=== PATIENT | male | born 1970 | race Two or more races ===

== ENCOUNTER 2017-05-12 16:01 | Emergency (ER) | payer MEDICARE, MEDICAID ==
[~2017-05-12] VITALS: Ht 177.8 cm; Wt 99.8 kg
[2017-05-12] MEDS ORDERED: NITROGLYCERIN 0.4 MG SUBL SL ONE (16:20)
[2017-05-12] MEDS ORDERED: ARIP30TA10 PO (16:29)
[2017-05-12] MEDS ORDERED: LITH600C6 PO (16:29)
[2017-05-12] MEDS ORDERED: LOSA25TA50 PO (16:29)
[2017-05-12] MEDS ORDERED: FLUT1DIS29 IH (16:29)
[2017-05-12] MEDS ORDERED: ATOR20TA22 PO (16:29)
[2017-05-12] MEDS ORDERED: ALB18R INH (16:29)
[2017-05-12] MEDS ORDERED: HYDR12.556 PO (16:29)
[2017-05-12] MEDS ORDERED: HYDR-4228 PO (16:29)
[2017-05-12] MEDS ORDERED: MORPHINE 4 MG/ML SDV IVP ONE (16:30)
[2017-05-12] MEDS ORDERED: ONDANSETRON 4 MG/2 ML VIAL IVP ONE (16:30)
--- NOTE | 2017-05-12 16:35 | EKG ---
FACILITY: [facility] [place] PATIENT NAME: MIKE HURD : [id number] MR: [id number] V: [id number] EXAM DATE: ORDERING PHYSICIAN: LATOSHA ARECHIGA TECHNOLOGIST: Mumtaz Johnson Reason : Blood Pressure : / mmHG Vent. Rate : 125 BPM Atrial Rate : 125 BPM P-R Int : 140 ms QRS Dur : 080 ms QT Int : 322 ms P-R-T Axes : 044 046 -14 degrees QTc Int : [address] elevation concerning for septal MO T wave abnormality, consider inferior ischemia Abnormal ECG When compared with ECG of 12-MAY-2017 16:11, No significant change was found Confirmed by VIRI CALLEJAS ([id number]) on 05/13/2017 6:14:47 AM Referred By: Confirmed By:VIRI CALLEJAS
--- NOTE | 2017-05-12 16:35 | EKG ---
FACILITY: [facility] PATIENT NAME: MIKE HURD : [id number] MR: [id number] V: [id number] EXAM DATE: ORDERING PHYSICIAN: LATOSHA ARECHIGA TECHNOLOGIST: Mumtaz Johnson Reason : Blood Pressure : / mmHG Vent. Rate : 116 BPM Atrial Rate : 116 BPM P-R Int : 142 ms QRS Dur : 086 ms QT Int : 332 ms P-R-T Axes : 052 052 -04 degrees QTc Int : 461 ms Sinus tachycardia Septal infarct , age undetermined ST elevation concerning for septal ID T wave abnormality, consider inferior ischemia Abnormal ECG No previous ECGs available Confirmed by VIRI CALLEJAS ([id number]) on 05/13/2017 6:14:06 AM Referred By: Confirmed By:VIRI CALLEJAS
[2017-05-12] MEDS ORDERED: CLOPIDOGREL BISULFATE 75MG TAB PO ONE ×2 (16:40→16:50)
[2017-05-12] MEDS ORDERED: HEPARIN (PORC) 5000 UN/ML VIAL IVP ONE (16:50)
[2017-05-12] MEDS ORDERED: HEPARIN* SOD/D5W 25000 U/500ML 500 ML IV ONE (16:50)
[2017-05-12 16:51] LABS: PLATELET COUNT, AUTOMATED 264 K/uL (150-450)
[2017-05-12] MEDS ORDERED: NITROGLYCERN* 50 MG/D5W 250 ML 250 ML IV ONE (16:55)
[2017-05-12] MEDS ORDERED: TENECTEPLASE 50 MG KIT IVP ONE (17:05)
--- NOTE | 2017-05-12 17:23 | ER Report ---
History and Physical Time Seen By MD: 17:00 Hx. of Stated Complaint: chest pain that started about 15 minutes ago HPI/ROS CHIEF COMPLAINT: Chest pain HISTORY OF PRESENT ILLNESS: Patient is a 46-year-old male who presents the ED with complaint of 15 minutes of severe chest pain radiating to both arms and his right jaw. He states that he was just watching TV when he first noticed this. He states that he does have a history of hypertension, hyperlipidemia, smoking although he did quit 7 years ago. He states that he usually is quite sedentary due to being on disability for his back and psychiatric issues. Patient states that he does have a positive family history of his father having an ND and needing a triple bypass at the age of 47. Patient states that he did have an episode of chest pain that is radiating into his right arm last week but this did resolve and he thought since it was not his left arm that it was nothing to worry about. Patient states that he is feeling a little short of breath and nauseated with this. He also does feel a little anxious. REVIEW OF SYSTEMS: Constitutional: No fever, no chills. Eyes: No discharge. ENT: No sore throat. Cardiovascular: History of present illness. No palpitations. Respiratory: See history of present illness. No cough. Gastrointestinal: No abdominal pain, no vomiting. Genitourinary: No hematuria. Musculoskeletal: No back pain. Skin: No rashes. Neurological: No headache. Allergies: Coded Allergies: No Known Drug Allergies (Unverified , 05/12/17) Home Meds Reported Medications Albuterol Sulfate (VENTOLIN HFA) 18 Gm Inh, 1-2 PUFF INH 3-4XD, INH 05/12/17 Fluticasone/Salmeterol (ADVAIR 500-50 DISKUS) 1 Each Disk.w.dev, 1 EACH IH BID 05/12/17 Aripiprazole (ABILIFY) 30 Mg Tablet, 30 MG PO QDAY, #10 TAB 05/12/17 Hydroxyzine Hcl (HYDROXYZINE HCL) 50 Mg Tablet, 50 MG PO PRN 05/12/17 Losartan Potassium (LOSARTAN POTASSIUM) 25 Mg Tablet, 25 MG PO QDAY 05/12/17 Hydrochlorothiazide (HYDROCHLOROTHIAZIDE) 12.5 Mg Capsule, 1 TAB PO QDAY, CAPSULE 05/12/17 Atorvastatin Calcium (LIPITOR) 20 Mg Tablet, 1 TAB PO QDAY, TAB 05/12/17 [place] Carbonate (LITHIUM CARBONATE) 600 Mg Capsule, 1200 MG PO BID, CAPSULE 05/12/17 Reviewed Nurses Notes: Yes Old Medical Records Reviewed: Yes Hx Substance Use Disorder: No Hx Alcohol Use: Yes Constitutional Vital Sign - Last 24 Hours 05/12/17 05/12/17 05/12/17 05/12/17 16:01 16:05 16:06 16:11 Pulse ??? 120 119 121 Resp 28 28 17 B/P (MAP) 141/110 (120) Pulse Ox 97 98 100 O2 Delivery Room Air 05/12/17 05/12/17 05/12/17 05/12/17 16:15 16:16 16:21 16:24 Pulse 115 114 Resp 20 12 B/P (MAP) 150/104 (119) 142/110 (121) Pulse Ox 99 97 05/12/17 05/12/17 05/12/17 05/12/17 16:26 16:28 16:30 16:31 Pulse 119 124 Resp 19 19 B/P (MAP) 132/84 (100) 126/89 (101) Pulse Ox 95 95 05/12/17 05/12/17 05/12/17 05/12/17 16:33 16:36 16:40 16:41 Pulse 126 123 Resp 23 20 B/P (MAP) 121/77 (92) 107/76 (86) Pulse Ox 94 94 05/12/17 05/12/17 05/12/17 05/12/17 16:46 16:50 16:51 16:56 Pulse 118 127 120 Resp 18 24 19 B/P (MAP) 112/92 (99) Pulse Ox 94 94 94 05/12/17 05/12/17 05/12/17 05/12/17 17:01 17:03 17:06 17:10 Pulse 123 120 Resp 16 22 B/P (MAP) 135/86 (102) 126/92 (103) Pulse Ox 95 95 05/12/17 05/12/17 17:11 17:16 Pulse 119 116 Resp 16 24 Pulse Ox 94 96 Physical Exam General Appearance: The patient is alert, has no immediate need for airway protection and no signs of toxicity. Patient appears to be in some mild distress. Eyes: Pupils equal and round no pallor or injection. ENT, Mouth: Mucous membranes are moist. Respiratory: There are no retractions, lungs are clear to auscultation. Cardiovascular: Regular rate and rhythm. No murmurs, rubs, gallops appreciated. Gastrointestinal: Abdomen is soft and non tender, no masses, bowel sounds normal. Skin: Warm and dry, no rashes. Musculoskeletal: Neck is supple non tender. Extremities are nontender, nonswollen and have full range of motion. No edema to bilateral lower extremity is appreciated. DIFFERENTIAL DIAGNOSIS: After history and physical exam differential diagnosis was considered for chest pain including but not limited to myocardial ischemia, pericarditis pulmonary embolus, chest wall pain, pleural inflammation and pulmonary infectious causes. Medical Decision Making Data Points Result Diagram: 05/12/17 1611 05/12/17 1611 Laboratory Hematology Test 05/12/17 16:11 Red Blood Count 5.68 M/uL (4.00-5.60) Mean Corpuscular Volume 84.8 fL (80.0-96.0) Mean Corpuscular Hemoglobin 28.0 pg (26.0-33.0) Mean Corpuscular Hemoglobin Concent 33.1 g/dL (32.0-36.0) Red Cell Distribution Width 19.5 % (11.5-14.5) Mean Platelet Volume 8.0 fL (7.2-11.1) Neutrophils (%) (Auto) 50.0 % (39.4-72.5) Lymphocytes (%) (Auto) 39.9 % (17.6-49.6) Monocytes (%) (Auto) 7.0 % (4.1-12.4) Eosinophils (%) (Auto) 2.6 % (0.4-6.7) Basophils (%) (Auto) 0.5 % (0.3-1.4) Nucleated RBC Relative Count (auto) 0.0 /100WBC Neutrophils # (Auto) 5.0 K/uL (2.0-7.4) Lymphocytes # (Auto) 4.0 K/uL (1.3-3.6) Monocytes # (Auto) 0.7 K/uL (0.3-1.0) Eosinophils # (Auto) 0.3 K/uL (0.0-0.5) Basophils # (Auto) 0.0 K/uL (0.0-0.1) Nucleated RBC Absolute Count (auto) 0.00 K/uL D-Dimer Quantitative (PE/DVT) < 0.27 ug/ml (0-0.50) Sodium Level 141 mmol/L (137-145) Potassium Level 3.3 mmol/L (3.5-5.0) Chloride Level 102 mmol/L (98-107) Carbon Dioxide Level 24 mmol/L (22-30) Blood Urea Nitrogen 7 mg/dl (9-21) Creatinine 0.80 mg/dl (0.66-1.25) Glomerular Filtration Rate Calc > 60.0 Random Glucose 125 mg/dl (75-110) Calcium Level 9.5 mg/dl (8.4-10.2) Total Bilirubin 0.4 mg/dl (0.2-1.3) Aspartate Amino Transf (AST/SGOT) 55 U/L (0-35) Alanine Aminotransferase (ALT/SGPT) 63 U/L (0-56) Alkaline Phosphatase 77 U/L (0-126) Troponin I 0.060 ng/ml Total Protein 8.0 gm/dl (6.3-8.2) Albumin 4.7 g/dl (3.5-5.0) Chemistry Test 05/12/17 16:11 White Blood Count 10.0 k/uL (4.5-11.0) Red Blood Count 5.68 M/uL (4.00-5.60) Hemoglobin 15.9 g/dL (14.0-18.0) Hematocrit 48.2 % (42.0-52.0) Mean Corpuscular Volume 84.8 fL (80.0-96.0) Mean Corpuscular Hemoglobin 28.0 pg (26.0-33.0) Mean Corpuscular Hemoglobin Concent 33.1 g/dL (32.0-36.0) Red Cell Distribution Width 19.5 % (11.5-14.5) Platelet Count 264 K/uL (150-450) Mean Platelet Volume 8.0 fL (7.2-11.1) Neutrophils (%) (Auto) 50.0 % (39.4-72.5) Lymphocytes (%) (Auto) 39.9 % (17.6-49.6) Monocytes (%) (Auto) 7.0 % (4.1-12.4) Eosinophils (%) (Auto) 2.6 % (0.4-6.7) Basophils (%) (Auto) 0.5 % (0.3-1.4) Nucleated RBC Relative Count (auto) 0.0 /100WBC Neutrophils # (Auto) 5.0 K/uL (2.0-7.4) Lymphocytes # (Auto) 4.0 K/uL (1.3-3.6) Monocytes # (Auto) 0.7 K/uL (0.3-1.0) Eosinophils # (Auto) 0.3 K/uL (0.0-0.5) Basophils # (Auto) 0.0 K/uL (0.0-0.1) Nucleated RBC Absolute Count (auto) 0.00 K/uL D-Dimer Quantitative (PE/DVT) < 0.27 ug/ml (0-0.50) Glomerular Filtration Rate Calc > 60.0 Calcium Level 9.5 mg/dl (8.4-10.2) Total Bilirubin 0.4 mg/dl (0.2-1.3) Aspartate Amino Transf (AST/SGOT) 55 U/L (0-35) Alanine Aminotransferase (ALT/SGPT) 63 U/L (0-56) Alkaline Phosphatase 77 U/L (0-126) Troponin I 0.060 ng/ml Total Protein 8.0 gm/dl (6.3-8.2) Albumin 4.7 g/dl (3.5-5.0) Coagulation Test 05/12/17 16:11 D-Dimer Quantitative (PE/DVT) < 0.27 ug/ml EKG/Imaging EKG Interpretation 12 lead EK:11 Rhythm: Sinus tachycardia, rate [address] segments: There appears to be some borderline ST elevation in V1, V2, V3. S/T ratio in V2 is 0.44 12 lead EK:27 Rhythm: Sinus tachycardia, rate [address] segments: Again borderline ST changes are noted in V1, V2, V3. They appear to be slightly worsened in V1 and V2 now. S/T ratio of V1 is 0.375 and S/ T ratio of V2 is 0.5 12 lead EK:50 Rhythm: Sinus tachycardia, rate [address] segments: Significant SCLC elevation noted in V2 and V1 now. Also some ST elevation noted in V3. 12 lead EK:13 - at time of lytics Rhythm: Sinus tachycardia, rate [address] segments: Significant ST elevation in V1, V2, V3. 12 lead EK:28 Rhythm: As tachycardia, rate [address] segments: Significant ST elevation in V1, V2, V3. Essentially unchanged from previous EKG Imaging CXR: No acute cardiopulmonary process identified. waiting for radiology reading. ED Course/Re-evaluation ED Course 16:20 - discussed patient with Dr. Peña, Cardiology and [facility] and discussed concern of possible evolving STEMI. Patient has been given 3 nitroglycerin SL, 4 mg morphine IV, 4 mg Zofran IV, Plavix [address] Peña is also concerned with possible evolving STEMI and was discussed this with the local truck driver. 16:30 - 3rd EKG is now been completed and now seeing signs of obvious ST elevation ND. Discussed this with Dr. Peña he states that he will accept patient and should start patient on lytics. He states to continue the heparin and 300 mg by mouth Plavix as well. Will also place him on nitroglycerin drip. Discussed lytics with patient. He has no risk factors of bleeding. He consents to lytic therapy. Discussed pt with Dr. Lowery who agrees with treatment and plan. Decision to Disposition Date: May 12, 2017 Decision to Disposition Time: 17:43 Depart Departure Latest Vital Signs Vital Signs Date Time Temp Pulse Resp B/P (MAP) Pulse Ox O2 Delivery O2 Flow Rate FiO2 05/12/17 17:16 116 24 96 05/12/17 17:10 126/92 (103) 05/12/17 16:05 Room Air Impression: Primary Impression: ST elevation ND (STEMI) Condition: Improved Disposition: XFER TO ACUTE CARE HOSPITAL MD Consult Note: Dr. Lowery, ED Dr. Peña, Cardiology at [facility] Problem Qualifiers Primary Impression: ST elevation ND (STEMI) Involved coronary artery: unspecified coronary artery Qualified Codes: I21.3 - ST elevation (STEMI) myocardial infarction of unspecified site LATOSHA ARECHIGA PA-C May 12, 2017 17:23
[2017-05-12 17:39] VITALS: BP 131/105
--- NOTE | 2017-05-12 17:49 | RADIOLOGY IMAGING REPORT ---
FACILITY: [facility] PATIENT NAME: Rich Chino : 1970 MR: [id number] V: [id number] EXAM DATE: ORDERING PHYSICIAN: LATOSHA ARECHIGA TECHNOLOGIST: Location: [facility] Patient: Rich Chino : 1970 Visit/Account:[id number] Date of Sevice: 05/12/2017 CHEST SINGLE AP Indication: Chest pain.. Comparison: None available Findings: Cardiomediastinal silhouette and pulmonary vessels within normal limits. There is no focal infiltrate or lobar consolidation. No pneumothorax or pleural effusion. No nodule. Upper abdomen is unremarkable. No acute bony abnormality. IMPRESSION: 1. No acute cardiopulmonary process. Report Dictated By: Chang Garcia at 05/12/2017 5:43 PM Report E-Signed By: Chang Garcia at 05/12/2017 5:44 PM WSN:[id number]
--- NOTE | 2017-05-12 20:24 | EKG ---
FACILITY: [facility] [place] PATIENT NAME: MIKE HURD : [id number] MR: [id number] V: [id number] EXAM DATE: ORDERING PHYSICIAN: LATOSHA ARECHIGA TECHNOLOGIST: Test Reason : Blood Pressure : / mmHG Vent. Rate : 112 BPM Atrial Rate : 112 BPM P-R Int : 138 ms QRS Dur : 086 ms QT Int : 336 ms P-R-T Axes : 023 038 -43 degrees QTc Int : 458 ms Sinus tachycardia Anteroseptal infarct , possibly acute ACUTE ME Abnormal ECG No previous ECGs available Confirmed by VIRI CALLEJAS ([id number]) on 05/13/2017 6:15:52 AM Referred By: Confirmed By:VIRI CALLEJAS
--- NOTE | 2017-05-12 20:24 | EKG ---
FACILITY: [facility] PATIENT NAME: MIKE HURD : [id number] MR: [id number] V: [id number] EXAM DATE: ORDERING PHYSICIAN: LATOSAH ARECHIGA TECHNOLOGIST: Mumtaz Johnson Reason : Blood Pressure : / mmHG Vent. Rate : 117 BPM Atrial Rate : 117 BPM P-R Int : 140 ms QRS Dur : 084 ms QT Int : 314 ms P-R-T Axes : 035 034 -45 degrees QTc Int : 438 ms Sinus tachycardia Septal infarct , age undetermined ST elevation concerning for septal WA Marked ST abnormality, possible inferior subendocardial injury Abnormal ECG When compared with ECG of 12-MAY-2017 16:27, ST now depressed in Inferior leads Confirmed by VIRI CALLEJAS ([id number]) on 05/13/2017 6:15:36 AM Referred By: Confirmed By:VIRI CALLEJAS
--- NOTE | 2017-05-12 20:24 | EKG ---
FACILITY: [facility] [place] PATIENT NAME: MIKE HURD : [id number] MR: [id number] V: [id number] EXAM DATE: ORDERING PHYSICIAN: LATOSHA ARECHIGA TECHNOLOGIST: Test Reason : Blood Pressure : / mmHG Vent. Rate : 118 BPM Atrial Rate : 118 BPM P-R Int : 136 ms QRS Dur : 088 ms QT Int : 330 ms P-R-T Axes : 023 043 -29 degrees QTc Int : 462 ms Sinus tachycardia Anteroseptal infarct , possibly acute ACUTE OR Abnormal ECG Unchanged from previous Confirmed by VIRI CALLEJAS ([id number]) on 05/13/2017 6:16:21 AM Referred By: Confirmed By:VIRI CALLEJAS
== END 2017-05-12 18:05 | disposition short-term general hospital (02) ==
LOC: ER 16:06
DX: I21.3 ST elevation (STEMI) myocardial infarction of unspecified site (principal)
CPT/HCPCS: 71045; 84484; 85025; 85379; 93005; 96365; 96368; 96375; 99285; A9270; J1644; J2270; J2405; J3101; J3490; 82040; 82247; 82310; 82374; 82435; 82565; 82947; 84075; 84132; 84155; 84295; 84450; 84460; 84520

== ENCOUNTER → 2017-05-12 | Outpatient (CLI) | payer MEDICARE, MEDICAID ==
[~2017-05-12] MED LIST: ALB18R INH; ARIP30TA10 PO; ATOR20TA22 PO; FLUT1DIS29 IH; HYDR-4228 PO; HYDR12.556 PO; LITH600C6 PO; LOSA25TA50 PO
== END ==
LOC: AMB 20:41
PROVIDERS: ATTEND Nurse Practitioner
DX: I21.3 ST elevation (STEMI) myocardial infarction of unspecified site (principal)
CPT/HCPCS: A0425; A0426

== ENCOUNTER → 2017-05-19 | Outpatient (CLI) | payer MEDICARE, MEDICAID | LOC: LAB 10:25 | PROVIDERS: ATTEND Physician Assistant | DX: F31.9 Bipolar disorder, unspecified (principal) | CPT/HCPCS: 80178; 82310; 82374; 82435; 82565; 82947; 84132; 84295; 84520 ==

== ENCOUNTER 2017-05-27 15:00 | Outpatient (RCR) | payer MEDICARE, MEDICAID ==
[2017-05-24 17:06] VITALS: BP 102/70
[2017-05-24 17:08] VITALS: BP 110/74
--- NOTE | 2017-05-24 18:06 | CARDIAC REHAB PLAN OF CARE ---
Physician: Ashish HORNE Patient is being seen: Brody Mae Medical Diagnosis: STEMI, Stent x 2, EF=35% Date of Initial Evaluation: May 24, 2017 SHORT TERM GOALS Short Term Goals Due Date: 06/24/17 Short Term Goals: 46 year old male phase II patient comes to cardiac rehab after an anterior STEMI with 2 stents placed (LAD,RCA), EF at 35%. Patient is 5 '10", 226 pounds with the BMI max weight at 174 pounds. Patient medical history also includes Asthma, COPD, and Laminectomy of Lumbar spine region with some numbness sensation of the left leg. Patient walks with the aid of a cane. Patient also diagnoses as a child with bipolar disorder and several times with depression. Patient is only somewhat interested in cardiac rehab at this time. Patient preformed poorly on initial evaluation exercise and could only tolerate 3.5 minutes on the recumbent bike at 3.3 MET level, SPO2 levels remained mid-90's on room air, and the threat monitoring analyst showed a ST without ectopy and a rate up to 111. Patient discontinued exercise at the 3.5 minute time with symptoms of claudication in the lower left leg. Patient will enter the cardiac rehab protocol with duration and intensity levels at 2.5-3.5 METs over a 10-15 minutes. Patient will also need to make adjustments to a heart healthy diet with proper portions and remain committed to lifestyle changes he has already made with smoking and alcohol cessation. Short Term Goals Met: Short Term Goals Not Met Due To: FARM CONSULTANT GOALS Usp Goal Due Date: 07/24/17 Usp Goals: jail goals for patient are to gradually work up to the minimum AHA standards of 150 minutes each week of a moderate level cardio exercise,along with weight resistance exercise at least twice a week. Patient will also continue to be consistent with heart healthy meals and portion control to allow safe 1-2 pound per week weight loss. Usp Goals Met: Usp Goals Not Met Due To: PATIENT'S GOALS Patient Goals Due Date: 06/24/17 Patient Goals: Patient interest in the cardiac rehab program is low at this time , and he really didn't have a goal in mind. When given the choice of healthy outcomes for diet, exercise, and lifestyle changes, he prioritized losing weight as his number one goal. Patient Goals Met: Patient Goals Not Met Due To: Cardiac Rehabilitation Plan of Care Comment: Cardiac rehab staff will monitor, record, and evaluate vitals, ECG, and exercise results to provide the best plan of care for the patient throughout the 36 visit, phase II program. CR staff will educate and motivate the patient during visits for rehab. OBED
[2017-05-27 16:20] VITALS: BP_SYST 118; BP_SYST 120; BP_DIAS 78; BP_DIAS 80
== END 2017-05-27 18:00 | disposition home or self-care (01) ==
LOC: CARD 15:00
PROVIDERS: ATTEND Internal Medicine Cardiovascular Disease
DX: I25.2 Old myocardial infarction (principal); Z95.5 Presence of coronary angioplasty implant and graft; J44.9 Chronic obstructive pulmonary disease, unspecified; Z98.890 Other specified postprocedural states; R20.2 Paresthesia of skin; F31.9 Bipolar disorder, unspecified; Z87.891 Personal history of nicotine dependence; I10 Essential (primary) hypertension
CPT/HCPCS: 93798

== ENCOUNTER → 2017-06-19 | Outpatient (CLI) | payer MEDICARE, MEDICAID | LOC: LAB 15:09 | PROVIDERS: ATTEND Internal Medicine Cardiovascular Disease | DX: R25.1 Tremor, unspecified (principal); Z79.899 Other long term (current) drug therapy | CPT/HCPCS: 36415; 80178; 82310; 82374; 82435; 82565; 82947; 84132; 84295; 84520 ==

== ENCOUNTER → 2017-06-24 | Outpatient (CLI) | payer MEDICARE, MEDICAID | LOC: LAB 10:20 | PROVIDERS: ATTEND Nurse Practitioner Psychiatric/Mental Health | DX: Z51.81 Encounter for therapeutic drug level monitoring (principal); Z79.899 Other long term (current) drug therapy | CPT/HCPCS: 36415; 80178; 84443 ==

== ENCOUNTER 2017-08-19 16:31 | Emergency (ER) | payer MEDICARE, MEDICAID ==
--- NOTE | 2017-08-19 16:40 | ER Report ---
History and Physical Time Seen By MD: 16:39 Hx. of Stated Complaint: CALLED EMS FOR CHEST PRESSURE. TOOK 4 BABY ASA AND ONE NITRO AT HOME. ARRIVES PAIN FREE. REPORTS THAT HE WAS DIZZY DURING EPISODE (MILAN WILSON DO) HPI/ROS CHIEF COMPLAINT: Chest pain, chest pressure, near syncope HISTORY OF PRESENT ILLNESS: Patient is a 47-year-old male status post PA several months ago Anterior STEMI with 2 stent placement. Patient reports that approximately one hour prior to arrival at approximately 1530 the patient attempted to stand up and felt extremely lightheaded, severe chest pressure midsternal distribution without radiation and pain that shot down both of his arms which is similar but less severe as compared to his prior heart attack. Patient took 4 aspirin and 1 nitroglycerin tab with near complete resolution of pain and pressure. REVIEW OF SYSTEMS: Constitutional: No fever, no chills. Eyes: No discharge. ENT: No sore throat. Cardiovascular: + Chest Pressure, no palpitations, + b/l UE pain Respiratory: No cough, no shortness of breath. Gastrointestinal: No abdominal pain, no vomiting. Genitourinary: No hematuria. Musculoskeletal: No back pain. Skin: No rashes. Neurological: No headache. (MILAN WILSON DO) Allergies: Coded Allergies: No Known Drug Allergies (Unverified , 05/12/17) Home Meds Reported Medications Albuterol Sulfate (VENTOLIN HFA) 18 Gm Inh, 1-2 PUFF INH 3-4XD, INH 05/12/17 Fluticasone/Salmeterol (ADVAIR 500-50 DISKUS) 1 Each Disk.w.dev, 1 EACH IH BID 05/12/17 Aripiprazole (ABILIFY) 30 Mg Tablet, 30 MG PO QDAY, #10 TAB 05/12/17 Hydroxyzine Hcl (HYDROXYZINE HCL) 50 Mg Tablet, 50 MG PO PRN 05/12/17 Losartan Potassium (LOSARTAN POTASSIUM) 25 Mg Tablet, 25 MG PO QDAY 05/12/17 Hydrochlorothiazide (HYDROCHLOROTHIAZIDE) 12.5 Mg Capsule, 1 TAB PO QDAY, CAPSULE 05/12/17 Atorvastatin Calcium (LIPITOR) 20 Mg Tablet, 1 TAB PO QDAY, TAB 05/12/17 [place] Carbonate (LITHIUM CARBONATE) 600 Mg Capsule, 1200 MG PO BID, CAPSULE 05/12/17 Hx Substance Use Disorder: No Hx Alcohol Use: Yes (MILAN WILSON DO) Constitutional Vital Sign - Last 24 Hours 08/19/17 08/19/17 08/19/17 08/19/17 16:32 16:34 16:34 16:46 Temp 98.4 Pulse 93 ??? Resp 20 B/P (MAP) 122/79 (93) 122/79 Pulse Ox 95 91 O2 Delivery Room Air O2 Flow Rate 2.0 08/19/17 08/19/17 08/19/17 08/19/17 16:53 17:00 17:01 17:15 Pulse 86 Resp 22 B/P (MAP) 112/78 (89) 117/73 (88) 111/76 (88) Pulse Ox 90 08/19/17 08/19/17 08/19/17 08/19/17 17:16 17:30 17:31 17:45 Pulse 93 87 Resp 20 20 B/P (MAP) 115/76 (89) 116/71 (86) Pulse Ox 90 92 08/19/17 08/19/17 08/19/17 08/19/17 17:46 18:00 18:01 18:15 Pulse 95 83 Resp 41 19 B/P (MAP) 117/77 (90) 104/78 (87) Pulse Ox 95 91 08/19/17 08/19/17 08/19/17 08/19/17 18:16 18:30 18:45 19:00 Pulse 84 85 85 Resp 9 29 28 B/P (MAP) 96/63 (74) 88/71 (77) 111/74 (86) Pulse Ox 92 88 92 08/19/17 08/19/17 08/19/17 08/19/17 19:15 19:20 19:30 19:35 Pulse 81 82 78 Resp 28 17 25 B/P (MAP) 92/74 (80) 115/90 (98) Pulse Ox 90 90 91 08/19/17 08/19/17 08/19/17 08/19/17 19:50 19:55 20:00 20:05 Pulse ??? 83 74 Resp 14 14 16 B/P (MAP) 120/80 (93) Pulse Ox 90 92 91 08/19/17 08/19/17 20:15 20:20 Pulse 85 Resp 11 B/P (MAP) 129/86 (100) Pulse Ox 92 (SARAH BETH BERGER Amira DO) Physical Exam General Appearance: The patient is alert, has no immediate need for airway protection and no signs of toxicity. Eyes: Pupils equal and round no pallor or injection. ENT, Mouth: Mucous membranes are moist. Respiratory: There are no retractions, lungs are clear to auscultation. Cardiovascular: Regular rate and rhythm. Gastrointestinal: Abdomen is soft and non tender, no masses, bowel sounds normal. Neurological: No focal neurological deficits Skin: Warm and dry, no rashes. Musculoskeletal: Neck is supple non tender. Extremities are nontender, nonswollen and have full range of motion. DIFFERENTIAL DIAGNOSIS: After history and physical exam differential diagnosis was considered for chest pain including but not limited to myocardial ischemia, pericarditis pulmonary embolus, chest wall pain, pleural inflammation and pulmonary infectious causes. (MILAN WILSON DO) Medical Decision Making Data Points Result Diagram: 08/19/17 1624 08/19/17 1624 Laboratory Hematology Test 08/19/17 16:24 08/19/17 19:39 Red Blood Count 6.39 M/uL (4.00-5.60) Mean Corpuscular Volume 81.6 fL (80.0-96.0) Mean Corpuscular Hemoglobin 27.2 pg (26.0-33.0) Mean Corpuscular Hemoglobin Concent 33.4 g/dL (32.0-36.0) Red Cell Distribution Width 13.7 % (11.5-14.5) Mean Platelet Volume 7.2 fL (7.2-11.1) Neutrophils (%) (Auto) 61.0 % (39.4-72.5) Lymphocytes (%) (Auto) 31.8 % (17.6-49.6) Monocytes (%) (Auto) 5.4 % (4.1-12.4) Eosinophils (%) (Auto) 1.3 % (0.4-6.7) Basophils (%) (Auto) 0.5 % (0.3-1.4) Nucleated RBC Relative Count (auto) 0.0 /100WBC Neutrophils # (Auto) 8.0 K/uL (2.0-7.4) Lymphocytes # (Auto) 4.2 K/uL (1.3-3.6) Monocytes # (Auto) 0.7 K/uL (0.3-1.0) Eosinophils # (Auto) 0.2 K/uL (0.0-0.5) Basophils # (Auto) 0.1 K/uL (0.0-0.1) Nucleated RBC Absolute Count (auto) 0.00 K/uL Prothrombin Time 13.0 seconds (12.0-14.4) Prothromb Time International Ratio 0.98 Activated Partial Thromboplast Time 27 seconds (23-35) Sodium Level 142 mmol/L (137-145) Potassium Level 3.8 mmol/L (3.5-5.0) Chloride Level 99 mmol/L (98-107) Carbon Dioxide Level 27 mmol/L (22-30) Blood Urea Nitrogen 18 mg/dl (9-21) Creatinine 1.30 mg/dl (0.66-1.25) Glomerular Filtration Rate Calc 58.9 Random Glucose 120 mg/dl (75-110) Calcium Level 10.8 mg/dl (8.4-10.2) Total Bilirubin 0.9 mg/dl (0.2-1.3) Aspartate Amino Transf (AST/SGOT) 30 U/L (0-35) Alanine Aminotransferase (ALT/SGPT) 55 U/L (0-56) Alkaline Phosphatase 82 U/L (0-126) B-Type Natriuretic Peptide 19 pg/ml (0-100) Total Protein 8.8 gm/dl (6.3-8.2) Albumin 5.1 g/dl (3.5-5.0) Troponin I < 0.012 ng/ml Chemistry Test 08/19/17 16:24 08/19/17 19:39 White Blood Count 13.2 k/uL (4.5-11.0) Red Blood Count 6.39 M/uL (4.00-5.60) Hemoglobin 17.4 g/dL (14.0-18.0) Hematocrit 52.1 % (42.0-52.0) Mean Corpuscular Volume 81.6 fL (80.0-96.0) Mean Corpuscular Hemoglobin 27.2 pg (26.0-33.0) Mean Corpuscular Hemoglobin Concent 33.4 g/dL (32.0-36.0) Red Cell Distribution Width 13.7 % (11.5-14.5) Platelet Count 319 K/uL (150-450) Mean Platelet Volume 7.2 fL (7.2-11.1) Neutrophils (%) (Auto) 61.0 % (39.4-72.5) Lymphocytes (%) (Auto) 31.8 % (17.6-49.6) Monocytes (%) (Auto) 5.4 % (4.1-12.4) Eosinophils (%) (Auto) 1.3 % (0.4-6.7) Basophils (%) (Auto) 0.5 % (0.3-1.4) Nucleated RBC Relative Count (auto) 0.0 /100WBC Neutrophils # (Auto) 8.0 K/uL (2.0-7.4) Lymphocytes # (Auto) 4.2 K/uL (1.3-3.6) Monocytes # (Auto) 0.7 K/uL (0.3-1.0) Eosinophils # (Auto) 0.2 K/uL (0.0-0.5) Basophils # (Auto) 0.1 K/uL (0.0-0.1) Nucleated RBC Absolute Count (auto) 0.00 K/uL Prothrombin Time 13.0 seconds (12.0-14.4) Prothromb Time International Ratio 0.98 Activated Partial Thromboplast Time 27 seconds (23-35) Glomerular Filtration Rate Calc 58.9 Calcium Level 10.8 mg/dl (8.4-10.2) Total Bilirubin 0.9 mg/dl (0.2-1.3) Aspartate Amino Transf (AST/SGOT) 30 U/L (0-35) Alanine Aminotransferase (ALT/SGPT) 55 U/L (0-56) Alkaline Phosphatase 82 U/L (0-126) B-Type Natriuretic Peptide 19 pg/ml (0-100) Total Protein 8.8 gm/dl (6.3-8.2) Albumin 5.1 g/dl (3.5-5.0) Troponin I < 0.012 ng/ml Coagulation Test 08/19/17 16:24 Prothrombin Time 13.0 seconds Prothromb Time International Ratio 0.98 Activated Partial Thromboplast Time 27 seconds (SARAH BETH BERGER DO) ED Course/Re-evaluation ED Course Patient is a 47-year-old male here with complaints of acute onset of chest pressure, bilateral upper extremity pain which was relieved by a single nitroglycerin and aspirin at home. Patient reports that the pain started approximately 1530. Initial troponin I was negative EKG showed no acute ST elevations or ischemic changes. Patient did have a recent STEMI earlier in 2018 to stents placed. She has been pain-free since time of admission the emergency department. Repeat troponin I scheduled for 1929. Plan to repeat EKG if pain returns. Patient was signed out to Dr. Berger pending labs. (MILAN WILSON DO) ED Course Care assumed at shift change with 2nd diagnostic troponin pending at 1930. It returned unremarkable. The results were discussed with the patient. He is advised to follow-up with his technical planner Decision to Disposition Date: August 19, 2017 Decision to Disposition Time: 20:10 (SARAH BETH BERGER DO) Depart Departure Latest Vital Signs Vital Signs Date Time Temp Pulse Resp B/P (MAP) Pulse Ox O2 Delivery O2 Flow Rate FiO2 08/19/17 20:20 129/86 (100) 08/19/17 20:15 85 11 92 08/19/17 16:34 2.0 08/19/17 16:34 98.4 Room Air (SARAH BETH BERGER DO) Impression: Primary Impression: Chest pressure Additional Impression: History of coronary artery disease Condition: Improved Referrals: [facility] (PCP) Patient Instructions: Chest Pain (DC) Additional Instructions: Follow-up with your cardiology at next available appointment Problem Qualifiers MILAN WILSON DO August 19, 2017 16:40 SARAH BETH BERGER DO August 19, 2017 20:11
[2017-08-19 16:47] LABS: PLATELET COUNT, AUTOMATED 319 K/uL (150-450)
--- NOTE | 2017-08-19 16:47 | EKG ---
FACILITY: [facility] - [place] PATIENT NAME: MIKE HURD : [id number] MR: [id number] V: [id number] EXAM DATE: ORDERING PHYSICIAN: MILAN WILSON TECHNOLOGIST: MING Johnson Reason : CHEST PRESSURE Blood Pressure : / mmHG Vent. Rate : 091 BPM Atrial Rate : 091 BPM P-R Int : 154 ms QRS Dur : 088 ms QT Int : 360 ms P-R-T Axes : 030 052 028 degrees QTc Int : 442 ms Normal sinus rhythm Septal infarct , age undetermined Abnormal ECG No previous ECGs available Confirmed by CORY JACOBSEN ([id number]) on 08/20/2017 6:34:36 AM Referred By: Confirmed By:CORY JACOBSEN
[2017-08-19 17:02] LABS: INR 0.98
--- NOTE | 2017-08-19 17:27 | RADIOLOGY IMAGING REPORT ---
FACILITY: [facility] - [place] PATIENT NAME: Rich Chino : 1970 MR: [id number] V: [id number] EXAM DATE: ORDERING PHYSICIAN: MILAN WILSON TECHNOLOGIST: Location: [facility] Patient: Rich Chino : 1970 Visit/Account:[id number] Date of Sevice: 08/19/2017 2 VIEWS CHEST INDICATION: Chest pain for one day. COMPARISON: 05/12/2017. FINDINGS: Cardiomediastinal silhouette and pulmonary vessels within normal limits. There is no focal infiltrate or lobar consolidation. There is no pneumothorax or pleural effusion. No nodule. Upper abdomen is unremarkable. No acute bony abnormality. IMPRESSION: 1. No acute cardiopulmonary process. Report Dictated By: Chang Garcia at 08/19/2017 5:21 PM Report E-Signed By: Chang Garcia at 08/19/2017 5:22 PM WSN:[id number]
[2017-08-19 20:20] VITALS: BP 129/86
== END 2017-08-19 20:20 | disposition home or self-care (01) ==
LOC: ER 16:39 → CANBEDREQ 18:09 → ER 20:20
DX: R07.89 Other chest pain (principal); I25.10 Atherosclerotic heart disease of native coronary artery without angina pectoris; R94.31 Abnormal electrocardiogram [ECG] [EKG]
CPT/HCPCS: 36415; 71046; 82040; 82247; 82310; 82374; 82435; 82565; 82947; 83880; 84075; 84132; 84155; 84295; 84450; 84460; 84484; 84520; 85025; 85610; 85730; 93005; 99284

== ENCOUNTER → 2017-08-19 | Outpatient (CLI) | payer MEDICARE, MEDICAID | LOC: AMB 16:11 | PROVIDERS: ATTEND Nurse Practitioner | DX: R07.9 Chest pain, unspecified (principal); I25.2 Old myocardial infarction | CPT/HCPCS: A0425; A0427 ==

== ENCOUNTER → 2017-09-23 | Outpatient (CLI) | payer MEDICARE, MEDICAID ==
[2017-09-23 10:10] LABS: PLATELET COUNT, AUTOMATED 292 K/uL (150-450)
[2017-09-23 10:53] LABS: LDL CHOLESTEROL 45 mg/dl
== END ==
LOC: LAB 09:42
PROVIDERS: ATTEND Nurse Practitioner Psychiatric/Mental Health
DX: Z51.81 Encounter for therapeutic drug level monitoring (principal); Z79.899 Other long term (current) drug therapy
CPT/HCPCS: 36415; 80178; 82040; 82247; 82310; 82374; 82435; 82465; 82565; 82947; 83036; 83718; 84075; 84132; 84155; 84295; 84439; 84443; 84450; 84460; 84478; 84520; 85025

== ENCOUNTER → 2018-05-14 | Outpatient (CLI) | payer MEDICARE, MEDICAID ==
[~2018-05-14] MED LIST changes: -LOSA25TA50 PO; +LOSA25TA57 PO
== END ==
LOC: LAB 09:44
PROVIDERS: ATTEND Internal Medicine Cardiovascular Disease
DX: I25.10 Atherosclerotic heart disease of native coronary artery without angina pectoris (principal); R06.00 Dyspnea, unspecified
CPT/HCPCS: 36415; 82040; 82247; 82310; 82374; 82435; 82465; 82565; 82947; 83718; 84075; 84132; 84155; 84295; 84443; 84450; 84460; 84478; 84520; 85379

== ENCOUNTER 2018-05-26 14:33 | Outpatient (RCR) | payer MEDICARE, MEDICAID ==
[2018-05-28] MEDS ORDERED: REGADENOSON 0.4 MG/5 ML SYR ONE (12:36)
--- NOTE | 2018-05-28 16:30 | RT STRESS TEST REPORT ---
[place] [facility] [place]IENT NAME: MIKE HURD : [id number] MR: [id number] V: [id number] EXAM DATE: ORDERING PHYSICIAN: FREDI GUEVARA TECHNOLOGIST: Boubacar Acquisition Time: 2018-05-28 14:40:09 Total Exercise Time: 00:01:00 Test Indications: SOB Medications: SEE NUCLEAR MED SHEET Protocol: LEXISCAN Max HR: 103 BPM 59% of Pred: 172 BPM Max BP: 128/078 mmHG Max Work Load: 1.0 METS Stress was performed using Lexiscan Protocol. Patient experienced some chest tightness with the infus ion. This resolved fairly quickly in recovery. No EKG chnages were noted. No dysrhythmias were recorded. Await Myoview images. Confirmed by FRANDY MELENDEZ ([id number]) on 05/28/2018 4:29:49 PM Referred By: Overread By: FRANDY MELENDEZ
--- NOTE | 2018-05-28 16:32 | RADIOLOGY IMAGING REPORT ---
FACILITY: [facility] PATIENT NAME: Rich Chino : 1970 MR: [id number] V: [id number] EXAM DATE: ORDERING PHYSICIAN: DAYANNA PETERSON TECHNOLOGIST: Location: [facility] Patient: Rich Chino : 1970 Visit/Account:[id number] Date of Sevice: 05/26/2018 EXAMINATION: Single isotope SPECT imaging with regadenoson infusion and gated SPECT imaging. DATE OF EXAMINATION: 05/28/2018. DATE OF INTERPRETATION: 05/28/2018. REQUESTING PHYSICIAN: DAYANNA PETERSON. INDICATION: The patient is a 47-year-old male evaluated for chest pain, CAD. PROCEDURE: After informed consent the patient received an intravenous injection of 13.0 mCi of Tc-99 m sestamibi followed at an appropriate time interval by rest imaging. The patient then subsequently received an intravenous infusion of 0.4 mg of regadenoson per protocol without complication. Resting heart rate was 80 bpm with a peak heart rate of 103 bpm. Blood pressure at rest was 128 / 78 and fo llowing infusion was [ ] / . Baseline EKG demonstrates sinus rhythm. There were no significant EKG changes of ischemia following infusion. Symptoms were nonspecific. The patient then received an int ravenous injection of 24.2 mCi of Tc-99m sestamibi followed by stress imaging. RAW DATA: Examination of the summed raw data revealed a fair quality study. Soft tissue attenuation noted. Patient obesity noted, patient weight 233 pounds. MYOCARDIAL PERFUSION: The tomographic images demonstrate probably normal perfusion rest and stress w ith no definite areas of infarct or ischemia seen. GATED IMAGES: The gated images demonstrate normal LV systolic function with no regional wall motion modalities, LVEF 70%. IMPRESSION: 1. Nondiagnostic Lexiscan stress ECG 2. Probably normal myocardial perfusion scan. No definite areas of infarct or ischemia seen. 3. Normal LV systolic function; LVEF 70%. Report Dictated By: Mickey Moise MD at 05/28/2018 4:22 PM Report E-Signed By: Mickey Moise MD at 05/28/2018 4:27 PM WSN:[id number]
== END 2018-05-28 18:00 | disposition home or self-care (01) ==
LOC: NUC 14:33
PROVIDERS: ATTEND Internal Medicine Cardiovascular Disease
DX: I25.10 Atherosclerotic heart disease of native coronary artery without angina pectoris (principal)
CPT/HCPCS: 78452; 93017; A9500; J2785

== ENCOUNTER → 2018-06-26 | Outpatient (CLI) | payer MEDICARE, MEDICAID | LOC: LAB 10:14 | PROVIDERS: ATTEND Nurse Practitioner Psychiatric/Mental Health | DX: Z51.81 Encounter for therapeutic drug level monitoring (principal) | CPT/HCPCS: 36415; 80178 ==

== ENCOUNTER → 2018-07-24 | Outpatient (CLI) | payer MEDICARE, MEDICAID | LOC: RESP 20:30 | PROVIDERS: ATTEND Family Medicine | DX: G47.33 Obstructive sleep apnea (adult) (pediatric) (principal); G47.61 Periodic limb movement disorder ==

== ENCOUNTER → 2018-09-03 | Outpatient (CLI) | payer MEDICARE, MEDICAID | LOC: LAB 14:47 | PROVIDERS: ATTEND Internal Medicine Cardiovascular Disease | DX: I25.10 Atherosclerotic heart disease of native coronary artery without angina pectoris (principal); E78.5 Hyperlipidemia, unspecified | CPT/HCPCS: 36415; 82040; 82247; 82310; 82374; 82435; 82465; 82565; 82947; 83718; 84075; 84132; 84155; 84295; 84450; 84460; 84478; 84520 ==